=== PATIENT | female | born 1985 | race Caucasian/White ===

== ENCOUNTER 2018-01-20 04:53 | Inpatient (IN) ==
[2018-01-20] MEDS ORDERED: BUTORPHANOL 1 MG/ML VIAL IV PRN (06:31)
[2018-01-20] MEDS ORDERED: ONDANSETRON 4 MG/2 ML VIAL IV PRN ×2 (06:31→10:28)
[2018-01-20] MEDS ORDERED: LACTATED RINGERS 1,000 ML IV SCH (07:00)
[2018-01-20] MEDS ORDERED: OXYTOCIN/LR 20 UNIT/1,000 ML BAG IV SCH (07:00)
[2018-01-20 07:01] LABS: Basophils % 0.2 % (0.0-0.8); Eosinophils # 0.2 10*3/uL (0.0-0.87); Eosinophils % 1.7 % (0.00-10.9); Hematocrit 32.1 VOL% (35.7-47.0); Hemoglobin 10.3 GM/DL (12.0-16.0); Immature Granulocytes % 0.5 %; Immature Granulocytes Absolute 0.04 #; Lymphocytes # 1.8 10*3/uL (1.4-4.0); Lymphocytes % 20.7 % (21.3-54.2); Mean Corpuscular HGB Conc 32.1 GM/DL (32-36); Mean Corpuscular Hemoglobin 26 PG (27-34); Mean Corpuscular Volume 82.1 FL (87-102); Mean Platelet Volume 11.6 FL (9.6-12.0); Monocytes # 0.8 10*3/uL (0.11-0.8); Monocytes % 9.6 % (1.7-12.7); Neutrophils # 5.8 10*3/uL (1.4-7.4); Neutrophils % 67.3 % (38.7-73.9); Platelet Count 190 T/CUMM (130-400); Red Blood Count 3.91 MC/CUMM (3.8-5.5); Red Cell Distribution Width 14.1 % (9.3-17.3); White Blood Count 8.6 T/CUMM (4-12)
[2018-01-20 07:09] LABS: INR 0.8; Partial Thromboplastin Time 25.8 SECS (0-40)
[2018-01-20 07:17] LABS: Alanine Aminotransferase 31 U/L (13-56); Albumin 1.9 G/DL (3.4-5.0); Alkaline Phosphatase 111 U/L (45-117); Aspartate Amino Transferase 41 U/L (0-37); Bilirubin,Total < 0.39 MG/DL (0.2-1.0); Blood Urea Nitrogen 13 MG/DL (7-18); Glucose 75 MG/DL (74-106); Osmolality,Calculated 275.5 MOS/KG (273-304); Potassium 4.2 MMOL/L (3.5-5.1); Sodium 139 MMOL/L (136-145); Total Protein 4.9 G/DL (6.4-8.3)
[2018-01-20] MEDS ORDERED: ceFAZolin 2,000 MG in PREMIX 1 EACH IV ONE (07:19)
[2018-01-20] MEDS ORDERED: PROMETHAZINE 25 MG/1 ML VIAL IM PRN (07:23)
[2018-01-20] MEDS ORDERED: hydrOXYzine HCL 25 MG/1 ML VIAL IM PRN ×2 (07:23→10:40)
[2018-01-20] MEDS ORDERED: FAMOTIDINE 20 MG/2 ML VIAL IV ONE (07:23)
[2018-01-20] MEDS ORDERED: diphenhydrAMINE 50 MG/1 ML VIAL IV PRN ×3 (07:23→15:05)
[2018-01-20] MEDS ORDERED: CITRIC ACID/SODIUM CITRATE 30 ML UDCUP PO ONE (07:23)
[2018-01-20] MEDS: LACTATED RINGERS 1,000 ML IV SCH ×2 (07:44→09:30)
[2018-01-20] MEDS: hydrALAZINE 20 MG/1 ML VIAL IV PRN ×2 (08:05→08:27)
[2018-01-20] MEDS ORDERED: OXYTOCIN/LR 20 UNIT/1,000 ML BAG IV ONE ×2 (10:00→10:28)
[2018-01-20 10:17] LABS: Cord Arterial Blood HCO3 24.1 MMOL/L
[2018-01-20 10:20] LABS: Cord Venous Blood HCO3 26.3 MMOL/L; Cord Venous Blood PCO2 46.3 MMHG; Cord Venous Blood PO2 22.8
[2018-01-20] MEDS ORDERED: BISACODYL 10 MG SUPP RECTAL PRN (10:28)
[2018-01-20] MEDS ORDERED: RHO(D) IMMUNE GLOBULIN 300 MCG SYRINGE IM ONE (10:28)
[2018-01-20] MEDS ORDERED: MEASLES/MUMPS/RUBELLA VACCINE 0.5 ML VIAL SUBCUT ONE (10:28)
[2018-01-20] MEDS ORDERED: DIPH/TET/ACEL PERT BOOSTER VACCINE 0.5 ML VIAL IM ONE (10:28)
[2018-01-20] MEDS ORDERED: WITCH HAZEL PADS 100/JAR TOP PRN (10:28)
[2018-01-20] MEDS ORDERED: ACETAMINOPHEN 325 MG TABLET PO PRN (10:28)
[2018-01-20] MEDS ORDERED: HYDROCORTISONE 2.5% RECTAL CREAM 30 GM TUBE TOP PRN (10:28)
[2018-01-20] MEDS ORDERED: LANOLIN 50% CREAM 0.3 OZ TUBE TOP PRN (10:28)
[2018-01-20] MEDS ORDERED: BENZOCAINE 20%/MENTHOL 0.5% SPRAY 56 GM CAN TOP PRN (10:28)
[2018-01-20] MEDS ORDERED: oxyCODONE/ACETAMINOPHEN 5-325 MG TABLET PO PRN (10:28)
[2018-01-20] MEDS ORDERED: HYDROmorphone 2 MG/1 ML VIAL IV PRN (10:40)
[2018-01-20] MEDS ORDERED: KETOROLAC 60 MG/2 ML VIAL IM ONE (10:41)
[2018-01-20] MEDS ORDERED: KETOROLAC 30 MG/1 ML VIAL IV PRN (10:42)
[2018-01-20] MEDS ORDERED: fentaNYL 100 MCG/2 ML VIAL ONE (10:44)
[2018-01-20] MEDS ORDERED: MORPHINE 10 MG/10 ML VIAL ONE (10:45)
[2018-01-20] MEDS ORDERED: KETOROLAC 30 MG/1 ML VIAL ONE (10:45)
[2018-01-20 11:50] LABS: Apearance,Urine CLEAR (Clear); Bilirubin,Urine Negative (Negative); Blood, Urine Small mg/dL (Negative); Glucose,Urine (UA) Negative (Negative); Ketones,Urine Negative (Negative); Mucus,Urine Occasional /LPF (Occasional); Nitrite,Urine Negative (Negative); Protein,Urine >=500 MG/DL; RBC,Urine 1 /HPF (0-4); Squamous Epithelial Cell,Urine Occasional /HPF (0-10); Urine Color Straw (Yellow); Urine Specific Gravity 1.005 (1.001-1.035); Urine Urobilinogen < 2.0 EU/DL (0.2-1.0); WBC,Urine <1 /HPF (0-6)
[2018-01-20] MEDS: LABETALOL 200 MG TABLET PO SCH (13:16)
[2018-01-20] MEDS: ceFAZolin 1,000 MG in SYRINGE 1 EACH IV SCH (18:15)
[2018-01-20] MEDS: DOCUSATE SODIUM 100 MG CAPSULE PO SCH (22:18)
[2018-01-21] MEDS: LABETALOL 200 MG TABLET PO SCH (00:02)
[2018-01-21] MEDS: ceFAZolin 1,000 MG in SYRINGE 1 EACH IV SCH (02:15)
[2018-01-21 06:22] LABS: Basophils % 0.2 % (0.0-0.8); Eosinophils # 0.2 10*3/uL (0.0-0.87); Eosinophils % 1.4 % (0.00-10.9); Hematocrit 27.8 VOL% (35.7-47.0); Hemoglobin 8.9 GM/DL (12.0-16.0); Immature Granulocytes % 0.5 %; Immature Granulocytes Absolute 0.05 #; Lymphocytes # 1.6 10*3/uL (1.4-4.0); Lymphocytes % 15.2 % (21.3-54.2); Mean Corpuscular Hemoglobin 27 PG (27-34); Mean Corpuscular Volume 83.2 FL (87-102); Mean Platelet Volume 11.1 FL (9.6-12.0); Monocytes # 0.8 10*3/uL (0.11-0.8); Monocytes % 7.8 % (1.7-12.7); Neutrophils # 7.9 10*3/uL (1.4-7.4); Neutrophils % 74.9 % (38.7-73.9); Platelet Count 169 T/CUMM (130-400); Red Blood Count 3.34 MC/CUMM (3.8-5.5); Red Cell Distribution Width 14.3 % (9.3-17.3); White Blood Count 10.6 T/CUMM (4-12)
[2018-01-21] MEDS: IBUPROFEN 800 MG TABLET PO PRN (09:17)
[2018-01-21] MEDS: DOCUSATE SODIUM 100 MG CAPSULE PO SCH ×2 (09:19→21:23)
[2018-01-21] MEDS: LABETALOL 100 MG TABLET PO SCH ×2 (09:19→21:23)
[2018-01-21] MEDS: oxyCODONE/ACETAMINOPHEN 5-325 MG TABLET PO PRN ×3 (10:10→23:11)
[2018-01-21] MEDS ORDERED: MAGNESIUM HYDROXIDE SUSP 30 ML UDCUP PO PRN (21:06)
[2018-01-22] MEDS: LABETALOL 100 MG TABLET PO SCH ×3 (08:09→23:51)
[2018-01-22] MEDS: DOCUSATE SODIUM 100 MG CAPSULE PO SCH ×2 (08:10→21:51)
[2018-01-22] MEDS: oxyCODONE/ACETAMINOPHEN 5-325 MG TABLET PO PRN ×2 (08:11→18:47)
[2018-01-22] MEDS: IBUPROFEN 800 MG TABLET PO PRN (23:51)
[2018-01-23] MEDS: oxyCODONE/ACETAMINOPHEN 5-325 MG TABLET PO PRN ×2 (01:35→07:53)
[2018-01-23] MEDS: LABETALOL 100 MG TABLET PO SCH (07:48)
[2018-01-23] MEDS: DOCUSATE SODIUM 100 MG CAPSULE PO SCH (09:00)
[2018-01-23 09:14] VITALS: BP 125/86
== END 2018-01-23 12:00 | disposition home or self-care (01) | DRG 765 ==
LOC: N.LDOUT 04:53 → N.LD 04:54 → N.OB 18:08
PROVIDERS: ADMIT Specialist; ATTEND Specialist
PROC: LDCSECT (ICD-10-PCS; 2018-01-20 09:00)

== ENCOUNTER 2021-05-06 05:27 | Inpatient (IN) ==
[2021-05-06] MEDS ORDERED: FAMOTIDINE 20 MG/2 ML VIAL IV ONE (05:42)
[2021-05-06] MEDS ORDERED: ceFAZolin 2,000 MG/50 ML DUPLEX IV ONE (05:42)
[2021-05-06] MEDS ORDERED: CITRIC ACID/SODIUM CITRATE 30 ML UDCUP PO ONE (05:42)
[2021-05-06] MEDS: LACTATED RINGERS 1,000 ML IV SCH ×2 (06:04→14:35)
[2021-05-06] MEDS ORDERED: BUPIVACAINE SPINAL 0.75% 2 ML AMP SPINAL ONE (06:23)
[2021-05-06] MEDS ORDERED: KETOROLAC 30 MG/1 ML VIAL ONE (06:23)
[2021-05-06] MEDS ORDERED: ONDANSETRON 4 MG/2 ML VIAL ONE ×2 (06:23→07:41)
[2021-05-06] MEDS ORDERED: OXYTOCIN/LR 20 UNIT/1,000 ML BAG IV ONE ×3 (06:28→07:30)
[2021-05-06 06:29] LABS: Basophils % 0.3 % (0.0-0.8); Eosinophils # 0.1 10*3/uL (0.0-0.87); Eosinophils % 1.5 % (0.00-10.9); Hematocrit 28.4 VOL% (35.7-47.0); Hemoglobin 8.4 GM/DL (12.0-16.0); Immature Granulocytes % 0.8 %; Immature Granulocytes Absolute 0.06 #; Lymphocytes # 1.6 10*3/uL (1.4-4.0); Lymphocytes % 20.2 % (21.3-54.2); Mean Corpuscular HGB Conc 29.6 GM/DL (32-36); Mean Corpuscular Volume 76.1 FL (87-102); Mean Platelet Volume 10.9 FL (9.6-12.0); Monocytes % 8.1 % (1.7-12.7); Neutrophils % 69.1 % (38.7-73.9); Platelet Count 232 T/CUMM (130-400); Red Blood Count 3.73 MC/CUMM (3.8-5.5); Red Cell Distribution Width 15.3 % (9.3-17.3); White Blood Count 7.8 T/CUMM (4-12)
[2021-05-06 06:40] LABS: INR 0.9; PT Patient Result 9.8 SECS (10.5-12.0); Partial Thromboplastin Time 23.5 SECS (23.9-33.8)
[2021-05-06] MEDS ORDERED: CARBOPROST TROMETHAMINE 250 MCG/ML AMP IM ONE (06:52)
[2021-05-06] MEDS ORDERED: TRANEXAMIC ACID 1,000 MG/10 ML VIAL ONE (06:52)
[2021-05-06] MEDS ORDERED: METHYLERGONOVINE 0.2 MG/1 ML AMP ONE (06:52)
[2021-05-06] MEDS ORDERED: miSOPROStoL 200 MCG TABLET ONE (06:52)
[2021-05-06] MEDS ORDERED: SODIUM CHLORIDE 0.9% 0 ML IV ONE (06:53)
[2021-05-06 07:06] LABS: Albumin 2.3 G/DL (3.4-5.0); Bilirubin,Total 0.8 MG/DL (0.2-1.0); Calcium 8.7 MG/DL (8.5-10.1); Osmolality,Calculated 269.8 MOS/KG (273-304); Total Protein 6.3 G/DL (6.4-8.2)
[2021-05-06] MEDS ORDERED: PHENYLEPHRINE 1 MG/10 ML SYRINGE IV ONE ×2 (07:19→07:26)
[2021-05-06] MEDS ORDERED: GLYCOPYRROLATE 0.4 MG/2 ML VIAL ONE (07:19)
[2021-05-06] MEDS ORDERED: LACTATED RINGERS 1,000 ML IV ONE (07:26)
[2021-05-06] MEDS ORDERED: ePHEDrine 50 MG/ML VIAL ONE (07:29)
[2021-05-06] MEDS ORDERED: PHENYLEPHRINE 10 MG/1 ML VIAL IV ONE (07:36)
[2021-05-06] MEDS ORDERED: DEXAMETHASONE 4 MG/1 ML VIAL ONE ×3 (07:45)
[2021-05-06 08:06] LABS: Cord Arterial Blood HCO3 21.6 MMOL/L
[2021-05-06 08:07] LABS: Cord Venous Blood HCO3 24.9 MMOL/L; Cord Venous Blood PCO2 47.6 MMHG; Cord Venous Blood PO2 21.4 MMHG
[2021-05-06 08:23] LABS: Bilirubin,Urine Negative (Negative); Blood, Urine Negative (Negative); Glucose,Urine (UA) Negative (Negative); Ketones,Urine Negative (Negative); Mucus,Urine Occasional /LPF (Occasional); Nitrite,Urine Negative (Negative); Protein,Urine Negative; RBC,Urine 1 /HPF (0-4); Squamous Epithelial Cell,Urine Occasional /HPF (0-10); Urine Appearance CLEAR (Clear); Urine Color Yellow (Yellow); Urine Specific Gravity 1.013 (1.001-1.035); Urine Urobilinogen < 2.0 EU/DL (0.2-1.0)
[2021-05-06] MEDS: KETOROLAC 30 MG/1 ML VIAL IV SCH ×3 (08:38→20:09)
[2021-05-06] MEDS: ACETAMINOPHEN 500 MG TABLET PO SCH ×3 (08:42→21:40)
[2021-05-06] MEDS ORDERED: DIPH/TET/ACEL PERT BOOSTER VACCINE 0.5 ML VIAL IM ONE (14:57)
[2021-05-06] MEDS ORDERED: BISACODYL 10 MG SUPP RECTAL PRN (14:57)
[2021-05-06] MEDS ORDERED: ONDANSETRON 4 MG/2 ML VIAL IV PRN (14:57)
[2021-05-06] MEDS ORDERED: LANOLIN 50% CREAM 0.3 OZ TUBE TOP PRN (14:57)
[2021-05-06] MEDS ORDERED: BENZOCAINE 20%/MENTHOL 0.5% SPRAY 56 GM CAN TOP PRN (14:57)
[2021-05-06] MEDS ORDERED: WITCH HAZEL PADS 100/JAR TOP PRN (14:57)
[2021-05-06] MEDS ORDERED: HYDROCORTISONE 2.5% RECTAL CREAM 30 GM TUBE TOP PRN (14:57)
[2021-05-06] MEDS ORDERED: ACETAMINOPHEN 325 MG TABLET PO PRN (14:57)
[2021-05-06] MEDS ORDERED: oxyCODONE/ACETAMINOPHEN 5-325 MG TABLET PO PRN (14:57)
[2021-05-06] MEDS ORDERED: SIMETHICONE CHEW 80 MG TABLET PO PRN (15:23)
[2021-05-06] MEDS ORDERED: MAGNESIUM HYDROXIDE SUSP 30 ML UDCUP PO PRN (15:23)
[2021-05-06] MEDS: oxyCODONE/ACETAMINOPHEN 5-325 MG TABLET PO PRN (21:30)
[2021-05-06] MEDS: DOCUSATE SODIUM 100 MG CAPSULE PO SCH (21:31)
[2021-05-06] MEDS: FERROUS SULFATE 325 MG TABLET PO SCH (21:31)
[2021-05-07] MEDS: ACETAMINOPHEN 500 MG TABLET PO SCH (02:50)
[2021-05-07] MEDS: KETOROLAC 30 MG/1 ML VIAL IV SCH (03:20)
[2021-05-07 05:36] LABS: Basophils % 0.1 % (0.0-0.8); Eosinophils # 0.1 10*3/uL (0.0-0.87); Hematocrit 21.8 VOL% (35.7-47.0); Hemoglobin 6.9 GM/DL (12.0-16.0); Immature Granulocytes % 1.2 %; Immature Granulocytes Absolute 0.12 #; Lymphocytes % 19.7 % (21.3-54.2); Mean Corpuscular HGB Conc 31.7 GM/DL (32-36); Mean Corpuscular Volume 75.4 FL (87-102); Monocytes % 7.2 % (1.7-12.7); Neutrophils % 70.8 % (38.7-73.9); Platelet Count 210 T/CUMM (130-400); Red Blood Count 2.89 MC/CUMM (3.8-5.5); Red Cell Distribution Width 15.8 % (9.3-17.3); White Blood Count 10.1 T/CUMM (4-12)
[2021-05-07] MEDS: oxyCODONE/ACETAMINOPHEN 5-325 MG TABLET PO PRN ×3 (05:41→21:45)
[2021-05-07] MEDS: IBUPROFEN 800 MG TABLET PO PRN ×2 (11:44→19:55)
[2021-05-07] MEDS: FERROUS SULFATE 325 MG TABLET PO SCH ×2 (11:45→21:46)
[2021-05-07] MEDS: LABETALOL 100 MG TABLET PO SCH ×2 (11:45→23:04)
[2021-05-07] MEDS: DOCUSATE SODIUM 100 MG CAPSULE PO SCH ×2 (11:46→21:46)
[2021-05-08] MEDS: IBUPROFEN 800 MG TABLET PO PRN ×2 (02:34→08:31)
[2021-05-08] MEDS: oxyCODONE/ACETAMINOPHEN 5-325 MG TABLET PO PRN ×2 (03:48→10:59)
[2021-05-08] MEDS: DOCUSATE SODIUM 100 MG CAPSULE PO SCH (08:31)
[2021-05-08] MEDS: LABETALOL 100 MG TABLET PO SCH (08:32)
[2021-05-08] MEDS: FERROUS SULFATE 325 MG TABLET PO SCH (08:32)
[2021-05-09 07:17] VITALS: BP 131/75
== END 2021-05-08 14:03 | disposition home or self-care (01) | DRG 788 ==
LOC: N.LD 05:27 → N.OB 14:20
PROVIDERS: ADMIT Specialist; ATTEND Specialist
PROC: LDCSECT (ICD-10-PCS; 2021-05-06 07:04)